=== PATIENT | female | born 1965 | race Caucasian/White ===

== ENCOUNTER 2017-11-14 05:43 | Inpatient (IN) | payer MEDICAID ==
[~2017-11-14] VITALS: Ht 167.6 cm; Wt 54.4 kg
[2017-11-14] MEDS ORDERED: Albuterol/Ipratropium 3ml neb ONE (05:53)
--- NOTE | 2017-11-14 05:54 | Emergency Room Report ---
History of Present Illness General Chief Complaint: Dyspnea/Respdistress Source: Patient Present Illness HPI Is a 51-year-old female with a history of depression COPD. She present with shortness of breath and coughing and wheezing for last 3 days. She been to [facility] twice. She was treated and released. She did not fill her prescription yet. Out of her inhaler. Presents with shortness of breath after smoking tonight. No nausea no vomiting. Tightness. Worse with exertion. Similar symptom in the past. Never been intubated. Denies any drug use. Allergies: Coded Allergies: PENICILLINS (Verified Allergy, Unknown, 11/14/17) Patient History Past Medical History: see triage record, old chart reviewed, HTN, COPD Past Surgical History: other Pertinent Family History: none Social History: Reports: smoking, Denies: alcohol use, drug use Last Menstrual Period: none Now: No : 4 Para: 3 Immunizations: other Reviewed Nursing Documentation: PMH: Agreed, PSxH: Agreed Nursing Documentation-PMH Hx Hypertension: Yes Hx COPD: Yes Review of Systems Eye: Denies: eye pain, blurred vision ENT: Denies: ear pain, nose congestion, throat swelling Respiratory: Reports: cough, shortness of breath Cardiovascular: Denies: chest pain, palpitations Gastrointestinal: Denies: abdominal pain, diarrhea, nausea, vomiting Musculoskeletal: Denies: back pain, joint pain Skin: Denies: rash Neurological: Denies: headache, numbness Endocrine: Denies: increased thirst, increased urine Hematologic/Lymphatic: Denies: easy bruising All Other Systems: negative except mentioned in HPI Physical Exam Vital Signs Date Time Temp Pulse Resp B/P (MAP) Pulse Ox O2 Delivery O2 Flow Rate FiO2 11/14/17 05:38 98.2 82 18 138/80 96 Room Air vitals normal Sp02 EP Interpretation: reviewed, normal General Appearance: well appearing, alert, mild distress Head: normocephalic, atraumatic Eyes: bilateral eye PERRL, bilateral eye EOMI ENT: hearing grossly normal, normal pharynx Neck: full range of motion, supple, no meningismus Respiratory: chest non-tender, respiratory distress - Mild, wheezing Cardiovascular #1: regular rate, rhythm, no murmur Gastrointestinal: normal bowel sounds, non tender, no mass, no organomegaly, no bruit, non-distended Musculoskeletal: back normal, gait/station normal, normal range of motion Psychiatric: mood/affect normal Skin: warm/dry Medical Decision Making Diagnostic Impression: Primary Impression: COPD exacerbation ER Course She presents with COPD exacerbation and acute on chronic respiratory failure. She slowly improving after first breathing treatment. Steroids given. Labs pending. I will sign this patient out to Dr. Castillo for final disposition. Rhythm Strip Diag. Results Rhythm Strip Time: 06:35 EP Interpretation: yes Rate: 91 Rhythm: NSR, no PVC's Chest X-Ray Diagnostic Results Chest X-Ray Diagnostic Results : Chest X-Ray Ordered: Yes # of Views/Limited/Complete: 1 View Indication: Shortness of Breath EP Interpretation: Yes Interpretation: no consolidation, no effusion, other - COPD Impression: Other - COPD Electronically Signed by: Rangel Duvall MD Last Vital Signs Date Time Temp Pulse Resp B/P (MAP) Pulse Ox O2 Delivery O2 Flow Rate FiO2 11/14/17 05:38 98.2 82 18 138/80 96 Room Air Status: improved RANGEL DUVALL M.D. Nov 14, 2017 05:54
[2017-11-14] MEDS ORDERED: Albuterol/Ipratropium 3ml neb HHN ONE (06:00)
[2017-11-14] MEDS ORDERED: Solu-MEDROL 125mg Inj IVP ONE (06:00)
[2017-11-14 06:28] VITALS: BP 138/80
[2017-11-14 06:42] LABS: BASOPHILS % (AUTO) 1.4 % (0.0-2.0); EOSINOPHILS % (AUTO) 0.2 % (0.0-3.0); LYMPHOCYTES % (AUTO) 18.9 % (20.0-45.0); MEAN CORPUSCULAR HEMOGLOBIN 29.2 PG (27.0-31.0); MEAN CORPUSCULAR HGB CONC 33.2 G/DL (32.0-36.0); MEAN CORPUSCULAR VOLUME 88 FL (80-99); MEAN PLATELET VOLUME 7.3 FL (6.5-10.1); MONOCYTES % (AUTO) 12.4 % (1.0-10.0); NEUTROPHILS % (AUTO) 67.1 % (45.0-75.0); PLATELET COUNT 424 K/UL (150-450); RED BLOOD COUNT 5.71 M/UL (4.20-5.40); RED CELL DISTRIBUTION WIDTH 12.2 % (11.6-14.8); WHITE BLOOD COUNT 17.3 K/UL (4.8-10.8)
[2017-11-14] MEDS ORDERED: Albuterol ud Inhalation HHN ONE (06:45)
[2017-11-14 06:51] LABS: ANION GAP 10 mmol/L (5-15); CALCIUM 9.3 MG/DL (8.5-10.1); CARBON DIOXIDE 24 MMOL/L (21-32); CHLORIDE 101 MMOL/L (98-107); CREATININE 1.3 MG/DL (0.55-1.30); GLOMERULAR FILTRATION RATE 42.8 mL/min (>60); POTASSIUM 4.5 MMOL/L (3.5-5.1); SODIUM 135 MMOL/L (136-145)
[2017-11-14 06:53] LABS: APPEARANCE,URINE CLEAR; KETONES,URINE NEGATIVE (NEGATIVE); LEUKOCYTE ESTERASE ,URINE 1+ (NEGATIVE); NITRITE,URINE NEGATIVE (NEGATIVE); PH,URINE 7 (4.5-8.0); PROTEIN,URINE NEGATIVE (NEGATIVE); UROBILINOGEN,URINE NORMAL MG/DL (0.0-1.0)
[2017-11-14 06:55] LABS: BACTERIA,URINE OCCASIONAL /HPF; RBC,URINE 0-2 /HPF (0 - 2); SQUAMOUS EPITHELIAL CELL,UR OCCASIONAL /LPF (NONE/OCC)
[2017-11-14] MEDS ORDERED: Promethazine/Codeine 5ml UD ORAL ONE (07:15)
[2017-11-14 08:05] VITALS: BP 130/85
[2017-11-14] MEDS ORDERED: LISINOPRIL20 MG ORAL (08:16)
[2017-11-14] MEDS ORDERED: SEROQUEL50 MG ORAL (08:16)
[2017-11-14] MEDS ORDERED: SULFAMETHOXAZO1 EAC1 ORAL (08:16)
[2017-11-14] MEDS ORDERED: BUSPIRONE HCL10 M1 ORAL (08:16)
[2017-11-14 10:00] VITALS: BP 123/82
--- NOTE | 2017-11-14 10:06 | Emergency Room Report ---
Physical Exam Vital Signs Date Time Temp Pulse Resp B/P (MAP) Pulse Ox O2 Delivery O2 Flow Rate FiO2 11/14/17 05:38 98.2 82 18 138/80 96 Room Air 11/14/17 05:58 4.0 11/14/17 07:08 28 Medical Decision Making Diagnostic Impression: Primary Impression: COPD exacerbation ER Course Hospital Course 52-year-old F presenting to ED with SOB. h/o COPD Clinical course Patient initially seen and evaluated by Dr Duvall; please see his note for full history and physical Labs - noted leukocytosis, hemoglobin/hematocrit stable, electrolytes okay, lactate okay, troponins negative CXR - hyperinflated lungs. no infiltrates Patient states she does not feel better and wishes to be admitted. Patient has had multiple recent ER visits for COPD and was subsequent discharged. Abx given Case discussed with Dr. Samuels and he agreed to the patient to his service for further care and support I feel this is a highly complex case requiring extensive working including EKG/ Rhythm strip, Xray/CT/US, Blood/urine lab work, repeat exams while in ED, and administration of strong opiates/narcotics for pain control, admission to hospital or close patient follow up. Diagnosis - COPD exacerbation Patient admitted to telemetry in serious condition Labs Test 11/14/17 06:14 White Blood Count 17.3 K/UL (4.8-10.8) Red Blood Count 5.71 M/UL (4.20-5.40) Hemoglobin 16.7 G/DL (12.0-16.0) Hematocrit 50.1 % (37.0-47.0) Mean Corpuscular Volume 88 FL (80-99) Mean Corpuscular Hemoglobin 29.2 PG (27.0-31.0) Mean Corpuscular Hemoglobin Concent 33.2 G/DL (32.0-36.0) Red Cell Distribution Width 12.2 % (11.6-14.8) Platelet Count 424 K/UL (150-450) Mean Platelet Volume 7.3 FL (6.5-10.1) Neutrophils (%) (Auto) 67.1 % (45.0-75.0) Lymphocytes (%) (Auto) 18.9 % (20.0-45.0) Monocytes (%) (Auto) 12.4 % (1.0-10.0) Eosinophils (%) (Auto) 0.2 % (0.0-3.0) Basophils (%) (Auto) 1.4 % (0.0-2.0) Urine Color Pale yellow Urine Appearance Clear Urine pH 7 (4.5-8.0) Urine Specific [place] 1.010 (1.005-1.035) Urine Protein Negative (NEGATIVE) Urine Glucose (UA) Negative (NEGATIVE) Urine Ketones Negative (NEGATIVE) Urine Occult Blood Negative (NEGATIVE) Urine Nitrite Negative (NEGATIVE) Urine Bilirubin Negative (NEGATIVE) Urine Urobilinogen Normal MG/DL (0.0-1.0) Urine Leukocyte Esterase 1+ (NEGATIVE) Urine RBC 0-2 /HPF (0 - 2) Urine WBC 2-4 /HPF (0 - 2) Urine Squamous Epithelial Cells Occasional /LPF Urine Bacteria Occasional /HPF (NONE) Sodium Level 135 MMOL/L (136-145) Potassium Level 4.5 MMOL/L (3.5-5.1) Chloride Level 101 MMOL/L (98-107) Carbon Dioxide Level 24 MMOL/L (21-32) Anion Gap 10 mmol/L (5-15) Blood Urea Nitrogen 23 mg/dL (7-18) Creatinine 1.3 MG/DL (0.55-1.30) Estimat Glomerular Filtration Rate 42.8 mL/min (>60) Glucose Level 82 MG/DL (74-106) Calcium Level 9.3 MG/DL (8.5-10.1) Urine Opiates Screen Negative (NEGATIVE) Urine Barbiturates Screen Negative (NEGATIVE) Phencyclidine (PCP) Screen Negative (NEGATIVE) Urine Amphetamines Screen Negative (NEGATIVE) Urine Benzodiazepines Screen Negative (NEGATIVE) Urine Cocaine Screen Negative (NEGATIVE) Urine Marijuana (THC) Screen Negative (NEGATIVE) Chest X-Ray Diagnostic Results Chest X-Ray Diagnostic Results : Chest X-Ray Ordered: Yes # of Views/Limited/Complete: 1 View Indication: Shortness of Breath EP Interpretation: Yes Interpretation: no consolidation, no effusion, no pneumothorax, no acute cardiopulmonary disease Impression: No acute disease Electronically Signed by: Electronically signed by Sebastian Castillo MD Last Vital Signs Date Time Temp Pulse Resp B/P (MAP) Pulse Ox O2 Delivery O2 Flow Rate FiO2 11/14/17 08:05 97.9 108 27 130/85 97 Nasal Cannula 2.0 11/14/17 07:19 28 Status: improved Disposition: ADMITTED INPATIENT Condition: Serious Referrals: NON PHYSICIAN (PCP) SEBASTIAN CASTILLO M.D. Nov 14, 2017 10:06
[2017-11-14] MEDS ORDERED: Levalbuterol Inh UD 1.25mg/0.5ml HHN ONE (10:45)
[2017-11-14] MEDS ORDERED: Ipratropium 0.02% Inh Soln 2.5ml UD HHN ONE (10:45)
[2017-11-14 12:05] VITALS: BP 142/70
--- NOTE | 2017-11-14 12:41 | Diagnostic Imaging Report ---
Indication: Dyspnea Comparison: None A single view chest radiograph was obtained. Findings: Cardiomediastinal appearance is within normal limits for age. Aorta is mildly calcified. Pulmonary vascularity is appropriate. The diaphragmatic contour is smooth and costophrenic angles are sharp. No pleural effusions are identified. The bones are unremarkable. Impression: No acute findings
[2017-11-14 14:15] VITALS: BP 140/76
--- NOTE | 2017-11-14 14:17 | History & Physical ---
History and Physical History & Physicial HP dictated # [id number] MARLEN ERNST Nov 14, 2017 14:16
[2017-11-14] MEDS ORDERED: LORazepam 1mg tab ORAL PRN (14:30)
[2017-11-14] MEDS ORDERED: Morphine Sulfate 4mg/ml Inj IVP PRN (14:30)
[2017-11-14] MEDS: Lisinopril 20mg tab ORAL SCH (14:30)
[2017-11-14] MEDS ORDERED: Azithromycin 500 MG in D5W 275 ML IV SCH ×2 (16:00→19:00)
[2017-11-14] MEDS: Solu-MEDROL 125mg Inj IVP SCH ×2 (16:21→20:03)
--- NOTE | 2017-11-14 17:15 | History and Physical Report ---
DATE OF ADMISSION: 11/14/2017 CHIEF COMPLAINT: Dyspnea on exertion. HISTORY OF PRESENT ILLNESS: This is a 52-year-old white female, who is originally from [place]. She was visiting her daughter and grandchildren here in [place]. She said that last year a day before Thanksgiving one week later she started having congestion and mucus from her nose and shortness of breath and this has worsened over time. The patient was seen in 4 emergency rooms and finally today she came here and was admitted for chronic obstructive pulmonary disease exacerbation. The patient does have a history of smoking half a pack a day and she said she has not been smoking only for the past 3 days, although, her symptoms have been going on for a while. PAST MEDICAL HISTORY: Includes history of hypertension. No history of diabetes. MEDICATIONS: Reviewed in the MAR. SOCIAL HISTORY: As mentioned, the patient has a history of smoking. No history of alcohol abuse. ALLERGIES: Penicillin. REVIEW OF SYSTEMS: As above. PHYSICAL EXAMINATION: GENERAL: The patient is a 52-year-old female, in no acute distress. VITAL SIGNS: Blood pressure 142/70, pulse 118, and temperature 98.5. HEENT: [place] conjunctivae. Anicteric sclerae. NECK: Supple. LUNGS: Diffuse with expiratory wheezing bilaterally. HEART: S1 and S2 without murmurs or rubs. Tachycardic. ABDOMEN: Soft and nontender. EXTREMITIES: No cyanosis or edema. LABORATORY FINDINGS: The CBC shows a WBC of 17,300, hematocrit 50.1, hemoglobin 16.1, and platelets 424,000. The chemistry panel shows serum sodium 135, potassium 4.5, chloride 101, CO2 24, BUN 23, creatinine 1.3 and glucose 82. UA is unremarkable. The patient had a chest x-ray, which was unremarkable. ASSESSMENT: This is a 52-year-old female with history of chronic obstructive pulmonary disease who was admitted with chronic obstructive pulmonary disease exacerbation and acute bronchitis. She has dyspnea on exertion. PLAN: The patient will be on IV antibiotics, bronchodilators, IV steroids and adjustment will be made in the patient's regimen. Say Samuels M.D. DR: NICHOLE/Blanquita JOB#: [id number] CC:
[2017-11-14] MEDS: BusPIRone 10mg Tab ORAL SCH (18:00)
[2017-11-14] MEDS: cefTRIAXone 1 GM in D5W 55 ML IV SCH (19:06)
[2017-11-14 20:42] VITALS: BP 136/76
[2017-11-14] MEDS: Albuterol/Ipratropium 3ml neb HHN SCH (21:00)
[2017-11-14] MEDS ORDERED: Milk of Magnesia 30ml Ud ORAL PRN (21:00)
[2017-11-14] MEDS ORDERED: Zolpidem 5mg tab ORAL PRN (21:00)
[2017-11-15 00:32] VITALS: BP 134/80
[2017-11-15] MEDS: Albuterol/Ipratropium 3ml neb HHN SCH ×5 (01:00→19:03)
[2017-11-15 04:00] VITALS: BP 130/83
[2017-11-15 08:35] VITALS: BP 133/86
[2017-11-15] MEDS: Solu-MEDROL 125mg Inj IVP SCH ×2 (08:48→21:54)
[2017-11-15] MEDS: Lisinopril 20mg tab ORAL SCH (08:49)
[2017-11-15] MEDS: BusPIRone 10mg Tab ORAL SCH ×2 (08:49→18:41)
[2017-11-15 08:57] LABS: LYMPHOCYTES % (AUTO) 9.2 % (20.0-45.0); MEAN CORPUSCULAR HEMOGLOBIN 29.6 PG (27.0-31.0); MEAN CORPUSCULAR HGB CONC 33.5 G/DL (32.0-36.0); MEAN CORPUSCULAR VOLUME 88 FL (80-99); MEAN PLATELET VOLUME 6.9 FL (6.5-10.1); MONOCYTES % (AUTO) 9.2 % (1.0-10.0); NEUTROPHILS % (AUTO) 80.5 % (45.0-75.0); PLATELET COUNT 390 K/UL (150-450); RED BLOOD COUNT 5.34 M/UL (4.20-5.40); RED CELL DISTRIBUTION WIDTH 12.4 % (11.6-14.8); WHITE BLOOD COUNT 11.9 K/UL (4.8-10.8)
--- NOTE | 2017-11-15 09:54 | General Progress Note ---
Assessment/Plan Problem List: (1) Acute bronchitis ICD Codes: J20.9 - Acute bronchitis, unspecified SNOMED: 90744340 (2) COPD exacerbation ICD Codes: J44.1 - Chronic obstructive pulmonary disease with (acute) exacerbation SNOMED: 224652344789442 Assessment/Plan Bronchodilators Abxs IV steroids Subjective Allergies: Coded Allergies: PENICILLINS (Verified Allergy, Unknown, 11/14/17) Subjective feels better Objective Last 24 Hour Vital Signs Date Time Temp Pulse Resp B/P (MAP) Pulse Ox O2 Delivery O2 Flow Rate FiO2 11/15/17 09:47 102 22 92 Nasal Cannula 2.0 28 11/15/17 08:49 133/86 11/15/17 08:35 98.6 89 18 133/86 93 Nasal Cannula 3.0 11/15/17 04:30 96 Nasal Cannula 2.0 11/15/17 04:20 95 20 95 Nasal Cannula 2.0 28 11/15/17 04:19 28 11/15/17 04:19 95 20 95 Nasal Cannula 2.0 28 11/15/17 04:19 95 20 Nasal Cannula 2.0 28 11/15/17 04:00 Nasal Cannula 2.0 11/15/17 04:00 97.5 100 21 130/83 92 11/15/17 00:32 95 Nasal Cannula 2.0 11/15/17 00:32 98.9 95 20 134/80 95 11/14/17 21:37 90 22 95 Nasal Cannula 2.0 28 11/14/17 21:23 28 11/14/17 21:22 90 22 95 Nasal Cannula 2.0 28 11/14/17 21:20 90 22 Nasal Cannula 2.0 11/14/17 20:42 Nasal Cannula 2.0 11/14/17 20:42 98.9 98 22 136/76 95 11/14/17 14:30 140/76 11/14/17 14:15 108 22 140/76 98 Nasal Cannula 2.0 11/14/17 12:05 98.5 118 24 142/70 95 Nasal Cannula 2.0 11/14/17 11:26 105 22 99 2.0 11/14/17 10:58 102 20 100 Nasal Cannula 2.0 11/14/17 10:00 112 25 123/82 98 Nasal Cannula 2.0 Laboratory Tests 11/15/17 07:15: White Blood Count 11.9H, Red Blood Count 5.34, Hemoglobin 15.8, Hematocrit 47.2H , Mean Corpuscular Volume 88, Mean Corpuscular Hemoglobin 29.6, Mean Corpuscular Hemoglobin Concent 33.5, Red Cell Distribution Width 12.4, Platelet Count 390, Mean Platelet Volume 6.9, Neutrophils (%) (Auto) 80.5H, Lymphocytes ( %) (Auto) 9.2L, Monocytes (%) (Auto) 9.2, Eosinophils (%) (Auto) 0.0, Basophils (%) (Auto) 1.0 Height (Feet): 5 Height (Inches): 6.00 Weight (Pounds): 120 Cardiovascular: normal rate Respiratory/Chest: expiratory wheezing Edema: no edema noted MARLEN Jade Nov 15, 2017 09:54
[2017-11-15] MEDS: Azithromycin 250mg tab ORAL SCH (11:15)
[2017-11-15 11:53] VITALS: BP_SYST 100; BP_SYST 133; BP_DIAS 60; BP_DIAS 86
[2017-11-15 16:00] VITALS: BP 110/75
[2017-11-15] MEDS: cefTRIAXone 1 GM in D5W 55 ML IV SCH (18:41)
[2017-11-15 20:05] VITALS: BP 121/83
[2017-11-16 00:14] VITALS: BP 122/72
[2017-11-16] MEDS: Albuterol/Ipratropium 3ml neb HHN SCH ×5 (01:32→18:42)
[2017-11-16 04:40] VITALS: BP 110/63
[2017-11-16 08:10] VITALS: BP 120/77
[2017-11-16] MEDS: Solu-MEDROL 125mg Inj IVP SCH ×2 (08:38→20:19)
[2017-11-16] MEDS: Lisinopril 20mg tab ORAL SCH (08:39)
[2017-11-16] MEDS: BusPIRone 10mg Tab ORAL SCH ×2 (08:39→17:53)
[2017-11-16] MEDS: Azithromycin 250mg tab ORAL SCH (08:39)
[2017-11-16 11:37] VITALS: BP 126/79
--- NOTE | 2017-11-16 12:07 | General Progress Note ---
Assessment/Plan Problem List: (1) Acute bronchitis ICD Codes: J20.9 - Acute bronchitis, unspecified SNOMED: 50837999 (2) COPD exacerbation ICD Codes: J44.1 - Chronic obstructive pulmonary disease with (acute) exacerbation SNOMED: 599816393091679 Assessment/Plan Bronchodilators Abxs IV steroids Subjective Allergies: Coded Allergies: PENICILLINS (Verified Allergy, Unknown, 11/14/17) Subjective SOSA Objective Last 24 Hour Vital Signs Date Time Temp Pulse Resp B/P (MAP) Pulse Ox O2 Delivery O2 Flow Rate FiO2 11/16/17 11:37 97.7 100 20 126/79 98 11/16/17 08:56 118 20 96 Nasal Cannula 3.0 32 11/16/17 08:49 118 20 92 Nasal Cannula 2.0 28 11/16/17 08:39 120/77 11/16/17 08:10 97.9 107 20 120/77 91 11/16/17 07:44 Nasal Cannula 11/16/17 07:43 95 20 98 Nasal Cannula 2.0 28 11/16/17 04:40 97.8 84 21 110/63 95 11/16/17 01:40 94 18 98 Nasal Cannula 3.0 32 11/16/17 01:33 90 20 98 Nasal Cannula 2.0 28 11/16/17 00:14 98.3 101 20 122/72 94 11/15/17 20:05 98.3 110 21 121/83 94 11/15/17 19:15 98 18 98 Nasal Cannula 3.0 32 11/15/17 19:07 94 20 97 Nasal Cannula 2.0 28 11/15/17 16:00 98.2 98 21 110/75 94 Nasal Cannula 3.0 11/15/17 13:46 28 11/15/17 13:46 94 20 95 Nasal Cannula 2.0 28 Intake and Output 11/16/17 11/17/17 19:00 07:00 Intake Total 320 ml Balance 320 ml Intake Oral 320 ml Height (Feet): 5 Height (Inches): 6.00 Weight (Pounds): 120 Cardiovascular: normal rate Respiratory/Chest: expiratory wheezing Edema: no edema noted MARLEN Jade Nov 16, 2017 12:07
[2017-11-16] MEDS ORDERED: Tubing IV Secondary IV ONE (15:20)
[2017-11-16] MEDS ORDERED: D5W 550ml IV ONE (15:20)
[2017-11-16 16:00] VITALS: BP 105/71
[2017-11-16] MEDS: cefTRIAXone 1 GM in D5W 55 ML IV SCH (17:54)
[2017-11-16 20:00] VITALS: BP 121/88
[2017-11-17 00:24] VITALS: BP 120/80
[2017-11-17] MEDS: Albuterol/Ipratropium 3ml neb HHN SCH ×3 (01:34→13:36)
[2017-11-17 04:36] VITALS: BP 119/76
[2017-11-17 08:00] VITALS: BP 121/83
[2017-11-17] MEDS: Azithromycin 250mg tab ORAL SCH (08:28)
[2017-11-17] MEDS: Solu-MEDROL 125mg Inj IVP SCH (08:28)
[2017-11-17] MEDS: BusPIRone 10mg Tab ORAL SCH (08:29)
[2017-11-17] MEDS: Lisinopril 20mg tab ORAL SCH (08:29)
[2017-11-17 12:00] VITALS: BP 113/73
--- NOTE | 2017-11-17 14:18 | General Progress Note ---
Assessment/Plan Problem List: (1) Acute bronchitis ICD Codes: J20.9 - Acute bronchitis, unspecified SNOMED: 76609596 (2) COPD exacerbation ICD Codes: J44.1 - Chronic obstructive pulmonary disease with (acute) exacerbation SNOMED: 782319710668141 Assessment/Plan Bronchodilators Abxs IV steroids Subjective Allergies: Coded Allergies: PENICILLINS (Verified Allergy, Unknown, 11/14/17) Subjective SOSA Objective Last 24 Hour Vital Signs Date Time Temp Pulse Resp B/P (MAP) Pulse Ox O2 Delivery O2 Flow Rate FiO2 11/17/17 13:44 113 18 97 Nasal Cannula 2.0 28 11/17/17 13:36 108 22 95 Nasal Cannula 2.0 28 11/17/17 12:00 98.0 113 20 113/73 96 11/17/17 08:29 119/76 11/17/17 08:00 97.4 87 17 121/83 96 11/17/17 07:43 110 18 96 Nasal Cannula 3.0 32 11/17/17 07:34 95 20 94 Nasal Cannula 2.0 28 11/17/17 04:37 Room Air 11/17/17 04:36 98.2 92 20 119/76 94 11/17/17 01:42 97 18 96 Nasal Cannula 3.0 32 11/17/17 01:34 92 20 95 Nasal Cannula 2.0 28 11/17/17 00:25 Room Air 11/17/17 00:24 97.9 109 21 120/80 94 11/16/17 20:01 Nasal Cannula 2.0 11/16/17 20:00 97.8 115 22 121/88 95 11/16/17 18:59 104 18 98 Nasal Cannula 3.0 32 11/16/17 18:42 99 22 93 Nasal Cannula 2.0 28 11/16/17 16:14 Nasal Cannula 11/16/17 16:11 Nasal Cannula 11/16/17 16:00 98.2 106 20 105/71 93 Room Air Intake and Output 11/16/17 11/17/17 19:00 07:00 Intake Total 910 ml 600 ml Balance 910 ml 600 ml Intake Oral 910 ml 600 ml # Voids 3 4 Height (Feet): 5 Height (Inches): 6.00 Weight (Pounds): 120 Cardiovascular: normal rate Respiratory/Chest: expiratory wheezing Edema: no edema noted Generalized RAHBAN,MARLEN Nov 17, 2017 14:18
[2017-11-17 16:00] VITALS: BP 126/89
--- NOTE | 2017-11-17 18:40 | Discharge Summary ---
Discharge Summary Hospital Course Date of Admission Nov 14, 2017 at 08:41 Date of Discharge Nov 17, 2017 at 17:00 Admitting Diagnosis COPD HPI Tania Aldrich is a 52 year old female who was admitted on Nov 14, 2017 at 08 :41 for Chronic Obstructive Pulmonary Disease Hospital Course [id number] Discharge Discharge Disposition Patient left AMA Discharge Diagnoses: Ruth Hawkins NP Nov 17, 2017 18:40
[2017-11-17] MEDS ORDERED: Solu-MEDROL 40mg Inj IVP SCH (21:00)
--- NOTE | 2017-11-18 03:02 | Discharge Summary 2 SIG ---
DATE OF ADMISSION: 11/14/2017 DATE OF DISCHARGE: 11/17/2017 BRIEF HOSPITAL COURSE: The patient is a 52-year-old white female, who is originally from [place]. She was visiting her daughter and grandchildren here in [place]. She started to have congestion and mucus from her nose and shortness of breath that has worsened over time. She was seen in the emergency room four times and finally today, she came here and was admitted for COPD exacerbation. She has a smoking history of half pack a day and she has not been smoking for the past three days. She has history of hypertension. She was admitted for acute COPD exacerbation and acute bronchitis. Chest x-ray done at ED was unremarkable. WBC was 17. She was started on IV antibiotics, ceftriaxone and was placed on IV Solu-Medrol and bronchodilators. Sputum culture showed yeast and usual upper respiratory cameron. She was given Zithromax 250 mg daily and was continued on lisinopril, Seroquel, and her home medications. Full treatment was not carried out as she signed out against medical advice. FINAL DIAGNOSES: 1. Acute bronchitis. 2. Acute chronic obstructive pulmonary disease exacerbation. DISPOSITION: The patient left against medical advice. Say Samuels M.D. I have been assigned to dictate discharge summary on this account and I was not involved in the patient's management. Ruth Hawkins N.P. DR: Alberto JOB#: [id number] CC:
== END 2017-11-17 17:00 | disposition left against medical advice (07) | DRG 140 ==
LOC: EDBD 05:43 → EMR 08:31 → 3E 08:41 → EDBEDREQSVC 14:20 → EDBEDREQ 14:20
DX: J44.0 Chronic obstructive pulmonary disease with (acute) lower respiratory infection (principal); I10 Essential (primary) hypertension; J20.9 Acute bronchitis, unspecified; J44.1 Chronic obstructive pulmonary disease with (acute) exacerbation; Z72.0 Tobacco use; Z53.21 Procedure and treatment not carried out due to patient leaving prior to being seen by health care provider; Z88.0 Allergy status to penicillin
CPT/HCPCS: 36415; 71010; 80048; 80307; 81001; 85025; 87070; 87205; 94640; 94664; 99285; J7620